=== PATIENT | female | born 1970 | race Hispanic/Latino ===

== ENCOUNTER 2019-07-11 12:20 | Emergency (ER) | payer OTHER | END 2019-07-11 14:26 | disposition home or self-care (01) | LOC: EDH 12:20 | DX: S83.91XA Sprain of unspecified site of right knee, initial encounter (principal); X58.XXXA Exposure to other specified factors, initial encounter; Y93.41 Activity, dancing; Y92.89 Other specified places as the place of occurrence of the external cause; Y99.8 Other external cause status | CPT/HCPCS: 73562 ==

== ENCOUNTER 2022-05-28 18:10 | Emergency (ER) | payer OTHER ==
[~2022-05-28] VITALS: Ht 165.1 cm; Wt 99.8 kg
[2022-05-28] MEDS ORDERED: ALBUTEROL 0.083% 2.5 MG/3 ML INH IH ONE (19:30)
[2022-05-28] MEDS ORDERED: D-ME118S47 PO (20:56)
[2022-05-28] MEDS ORDERED: ALBU2.5V2 IH (20:56)
[2022-05-28] MEDS ORDERED: BENZ-39 PO (20:56)
[2022-05-28] MEDS ORDERED: PRED20TA3 PO (20:56)
[2022-05-28] MEDS ORDERED: NEBU-305 MC (20:56)
[2022-05-28 21:11] VITALS: BP 178/87
== END 2022-05-28 21:11 | disposition home or self-care (01) ==
LOC: EDH 18:10
DX: J21.9 Acute bronchiolitis, unspecified (principal); R06.2 Wheezing; Z20.822 Contact with and (suspected) exposure to COVID-19
CPT/HCPCS: 99284; 71045; 87635; 87880; 87804 ×2; 94640; C9803